=== PATIENT | male | born 1980 | race Caucasian/White ===

== ENCOUNTER 2020-01-22 15:54 | Inpatient (IN) ==
[2020-01-22] MEDS ORDERED: Dexamethasone 4 MG/ML VIAL IVP ONE (16:15)
[2020-01-22 16:45] LABS: Basophils % 0.4 %; Hematocrit 52.5 % (37.5-50.1); Immature Granulocytes % 0.2 % (0-4); Lymphocytes # 1.4 K/mcL (0.6-4.6); Lymphocytes % 25.8 %; Mean Corpuscular HGB Conc 34.3 g/dL (31.6-35.5); Mean Corpuscular Hemoglobin 29.6 pg (28.0-33.3); Mean Corpuscular Volume 86.3 fL (83.0-100.0); Mean Platelet Volume 9.9 fL (9.4-12.4); Monocytes # 0.5 K/mcL (0.0-1.3); Monocytes % 8.9 %; Neutrophils # 3.5 K/mcL (1.6-8.9); Platelet Count 172 K/mcL (140-400); Red Blood Count 6.08 M/mcL (4.19-5.50); Red Cell Distribution Width 12.8 % (11.5-14.5); Segmented Neutrophils % 64.7 %; White Blood Count 5.4 K/mcL (4.3-11.1)
[2020-01-22 16:48] LABS: Fibrinogen 615 mg/dL (169-393)
[2020-01-22 16:50] LABS: D-Dimer 527 ng/mLFEU (0-500)
[2020-01-22] MEDS ORDERED: Isovue-370 500 ML BOTTLE IVP ONE (17:04)
[2020-01-22 17:05] LABS: Alanine Aminotransferase 56 Units/L (7-52); Albumin 4.5 g/dL (3.5-5.7); Albumin/Globulin Ratio 1.2 (1.1-2.2); Alkaline Phosphatase 52 Units/L (34-104); Aspartate Amino Transferase 37 Units/L (13-39); BUN/Creatinine Ratio 14 (6-26); Bilirubin,Total 0.8 mg/dL (0.3-1.0); Blood Urea Nitrogen 17 mg/dL (6-20); C-Reactive Protein 40 mg/L (Less than 10); Calcium 8.7 mg/dL (8.6-10.3); Carbon Dioxide 27 mEq/L (23-29); Chloride 95 mEq/L (98-107); Globulin 3.7 g/dL (2.4-3.5); Glucose 110 mg/dL (70-105); Osmolality,Calculated 278 (280-300); Sodium 133 mEq/L (136-145); Total Protein 8.2 g/dL (6.4-8.9); Troponin I < 0.03 ng/mL (< 0.04); eGFR For African Americans > 60 (> 60); eGFR For Non-African Americans > 60 (> 60)
[2020-01-22 17:19] LABS: Ferritin 560 ng/mL (20-250)
[2020-01-22] MEDS ORDERED: cefTRIAXone 1,000 MG in Water for inj. (sterile) 10 ML IVP ONE (17:36)
[2020-01-22] MEDS ORDERED: Azithromycin 500 MG in 0.9 % Sodium Chloride 250 ML IVPB ONE (17:36)
[2020-01-22] MEDS ORDERED: Naloxone 0.4 MG/ML INJ IVP PRN (18:40)
[2020-01-23] MEDS: Melatonin 3 MG TABLET PO SCH ×2 (01:41→20:27)
[2020-01-23 02:02] LABS: Basophils % 0.3 %; Hematocrit 53.2 % (37.5-50.1); Hemoglobin 18.1 g/dL (12.9-16.9); INR 1.2; Immature Granulocytes % 0.6 % (0-4); Lymphocytes # 0.6 K/mcL (0.6-4.6); Lymphocytes % 16.3 %; Mean Corpuscular Hemoglobin 29.2 pg (28.0-33.3); Mean Corpuscular Volume 85.9 fL (83.0-100.0); Mean Platelet Volume 9.7 fL (9.4-12.4); Monocytes # 0.2 K/mcL (0.0-1.3); Monocytes % 4.9 %; Neutrophils # 2.7 K/mcL (1.6-8.9); Platelet Count 164 K/mcL (140-400); Prothrombin Time 13.8 Seconds (9.4-12.1); Red Blood Count 6.19 M/mcL (4.19-5.50); Red Cell Distribution Width 12.8 % (11.5-14.5); Segmented Neutrophils % 77.9 %; White Blood Count 3.5 K/mcL (4.3-11.1)
[2020-01-23 02:19] LABS: BUN/Creatinine Ratio 17 (6-26); Blood Urea Nitrogen 19 mg/dL (6-20); Calcium 8.6 mg/dL (8.6-10.3); Carbon Dioxide 27 mEq/L (23-29); Chloride 98 mEq/L (98-107); Glucose 152 mg/dL (70-105); Osmolality,Calculated 287 (280-300); Potassium 4.3 mEq/L (3.5-5.1); Sodium 136 mEq/L (136-145); eGFR For African Americans > 60 (> 60); eGFR For Non-African Americans > 60 (> 60)
[2020-01-23] MEDS ORDERED: Ondansetron 4 MG/2 ML VIAL IVP PRN (02:31)
[2020-01-23] MEDS: *HR* Enoxaparin 40 MG/0.4 ML SYRINGE SQ SCH (05:06)
[2020-01-23] MEDS: cefTRIAXone 1,000 MG in Water for inj. (sterile) 10 ML IVP SCH (09:52)
[2020-01-23] MEDS: Dexamethasone 4 MG/ML VIAL IVP SCH (09:52)
[2020-01-23] MEDS: Budesonide/Formoterol 80/4.5 1 PUFF INH IH SCH ×2 (10:20→20:08)
[2020-01-23 13:30] LABS: INR 1.2; Prothrombin Time 13.4 Seconds (9.4-12.1)
[2020-01-23 13:33] LABS: Activated Partial Thrombo Time 26.5 Seconds (26.0-36.0)
[2020-01-23] MEDS ORDERED: Benzonatate 100 MG CAPSULE PO PRN (13:54)
[2020-01-23] MEDS: amLODIPine 5 MG TABLET PO SCH (14:35)
[2020-01-23] MEDS: Azithromycin 500 MG in D5% in Water 250 ML IVPB SCH (18:35)
[2020-01-24] MEDS: *HR* Enoxaparin 40 MG/0.4 ML SYRINGE SQ SCH (05:09)
[2020-01-24 07:14] LABS: Basophils % 0.1 %; Eosinophils % 0.1 %; Hematocrit 49.1 % (37.5-50.1); Immature Granulocytes % 0.3 % (0-4); Lymphocytes # 1.1 K/mcL (0.6-4.6); Lymphocytes % 14.2 %; Mean Corpuscular HGB Conc 34.6 g/dL (31.6-35.5); Mean Corpuscular Hemoglobin 28.6 pg (28.0-33.3); Mean Corpuscular Volume 82.5 fL (83.0-100.0); Mean Platelet Volume 10.4 fL (9.4-12.4); Monocytes # 0.7 K/mcL (0.0-1.3); Monocytes % 9.6 %; Neutrophils # 5.7 K/mcL (1.6-8.9); Platelet Count 219 K/mcL (140-400); Red Blood Count 5.95 M/mcL (4.19-5.50); Red Cell Distribution Width 12.7 % (11.5-14.5); Segmented Neutrophils % 75.7 %
[2020-01-24 07:18] LABS: White Blood Count 7.5 K/mcL (4.3-11.1)
[2020-01-24 07:29] LABS: BUN/Creatinine Ratio 27 (6-26); Blood Urea Nitrogen 25 mg/dL (6-20); Calcium 8.7 mg/dL (8.6-10.3); Carbon Dioxide 25 mEq/L (23-29); Chloride 99 mEq/L (98-107); Glucose 122 mg/dL (70-105); Osmolality,Calculated 284 (280-300); Potassium 3.9 mEq/L (3.5-5.1); Sodium 134 mEq/L (136-145); eGFR For African Americans > 60 (> 60); eGFR For Non-African Americans > 60 (> 60)
[2020-01-24] MEDS: Dexamethasone 4 MG/ML VIAL IVP SCH (08:11)
[2020-01-24] MEDS: cefTRIAXone 1,000 MG in Water for inj. (sterile) 10 ML IVP SCH (08:12)
[2020-01-24] MEDS: amLODIPine 5 MG TABLET PO SCH (08:12)
[2020-01-24] MEDS: hydroCHLOROthiazide 25 MG TABLET PO SCH (08:12)
[2020-01-24] MEDS: Budesonide/Formoterol 80/4.5 1 PUFF INH IH SCH ×2 (08:21→19:47)
[2020-01-24] MEDS: Azithromycin 500 MG in D5% in Water 250 ML IVPB SCH (17:46)
[2020-01-24] MEDS: Melatonin 3 MG TABLET PO SCH (21:00)
[2020-01-25] MEDS: *HR* Enoxaparin 40 MG/0.4 ML SYRINGE SQ SCH (05:03)
[2020-01-25 07:34] VITALS: BP 146/82
[2020-01-25] MEDS: Budesonide/Formoterol 80/4.5 1 PUFF INH IH SCH (08:10)
[2020-01-25] MEDS: cefTRIAXone 1,000 MG in Water for inj. (sterile) 10 ML IVP SCH (09:21)
[2020-01-25] MEDS: Dexamethasone 4 MG/ML VIAL IVP SCH (09:22)
[2020-01-25 09:27] LABS: Hematocrit 49.4 % (37.5-50.1); Hemoglobin 17.1 g/dL (12.9-16.9); Mean Corpuscular HGB Conc 34.6 g/dL (31.6-35.5); Mean Corpuscular Hemoglobin 28.7 pg (28.0-33.3); Mean Corpuscular Volume 82.9 fL (83.0-100.0); Mean Platelet Volume 9.3 fL (9.4-12.4); Platelet Count 293 K/mcL (140-400); Red Blood Count 5.96 M/mcL (4.19-5.50); Red Cell Distribution Width 12.6 % (11.5-14.5); White Blood Count 7.7 K/mcL (4.3-11.1)
[2020-01-25] MEDS: amLODIPine 5 MG TABLET PO SCH (09:27)
[2020-01-25] MEDS: hydroCHLOROthiazide 25 MG TABLET PO SCH (09:27)
[2020-01-25 09:49] LABS: BUN/Creatinine Ratio 24 (6-26); Blood Urea Nitrogen 26 mg/dL (6-20); Calcium 8.5 mg/dL (8.6-10.3); Carbon Dioxide 31 mEq/L (23-29); Chloride 96 mEq/L (98-107); Glucose 110 mg/dL (70-105); Osmolality,Calculated 287 (280-300); Potassium 3.5 mEq/L (3.5-5.1); Sodium 136 mEq/L (136-145); eGFR For African Americans > 60 (> 60); eGFR For Non-African Americans > 60 (> 60)
== END 2020-01-25 12:19 | disposition home or self-care (01) | DRG 177 ==
LOC: 3BNU 15:54 → EMEROOARM 15:54 → SUATTDRO 19:02 → 3BNU 20:35
PROVIDERS: ADMIT Internal Medicine; ATTEND Internal Medicine